=== PATIENT | male | born 1970 | race Caucasian/White ===

== ENCOUNTER 2021-11-14 15:10 | Emergency (ER) | payer MEDICAID ==
[~2021-11-14] VITALS: Ht 172.7 cm; Wt 63.5 kg
[2021-11-14 15:13] VITALS: BP 105/68
--- NOTE | 2021-11-14 15:22 | NUR ---
51 y/o male ambulated to 3, pt states "my heart has not beat for 10 years and it barely started beating now". states "something is wrong upstairs, they said i have a navel". pt is c/o swelling in the face started yesterday, pt has reddened and blisters around eyes. pmh: denies nka med: denies
[2021-11-14 16:16] LABS: BASOPHILS % (AUTO) 0.3 % (0.0-2.0); EOSINOPHILS # (AUTO) 1.9 K/uL (0-0.4); EOSINOPHILS % (AUTO) 23.5 % (0.0-4.0); HEMATOCRIT 29.4 % (36-52); HEMOGLOBIN 10.2 g/dL (12.0-18.0); LYMPHOCYTES # (AUTO) 0.9 K/uL (2.0-11.5); LYMPHOCYTES % (AUTO) 11.8 % (20.5-51.1); MEAN CORPUSCULAR HEMOGLOBIN 36 pg (27-31); MEAN CORPUSCULAR HGB CONC 35 g/dL (33-37); MEAN CORPUSCULAR VOLUME 103.7 fL (80-94); MONOCYTES # (AUTO) 0.6 K/uL (0.8-1.0); MONOCYTES % (AUTO) 7.2 % (1.7-9.3); NEUTROPHILS # (AUTO) 4.5 K/uL (1.8-7.7); NEUTROPHILS % (AUTO) 57.2 % (42.2-75.2); PLATELET COUNT (AUTO) 355 K/uL (140-450); RED BLOOD CELL COUNT(AUTO) 2.83 MIL/uL (4.20-6.10); RED CELL DISTRIBUTION WIDTH 13.9 % (11.6-13.7); WHITE BLOOD COUNT (AUTO) 7.9 K/uL (4.8-10.8)
[2021-11-14 16:18] LABS: BARBITURATE, URINE NEGATIVE ng/ml (NEG <=200); BENZODIAZEPINE, URINE NEGATIVE ng/mL (NEG <=200); CANNABINOID, URINE NEGATIVE ng/mL (NEG <=50); COCAINE, URINE NEGATIVE ng/mL (NEG <=300); OPIATE, URINE NEGATIVE ng/mL (NEG <=2000); PHENCYCLIDINE SCREEN,URINE NEGATIVE ng/mL (NEG <=25)
[2021-11-14 16:19] LABS: ACETAMINOPHEN < 0.5 ug/ml (10-30); ALBUMIN 3.2 g/dL (3.4-5.0); ANION GAP 13.7 (8-16); ASPARTATE AMINOTRANSFERASE 17 U/L (15-37); CARBON DIOXIDE 23.6 mmol/L (21-32); CHLORIDE 103 mmol/L (98-107); CREATININE 1.5 mg/dL (0.6-1.3); GFR ARICAN-AMERICAN 63 mL/min (>90); GLUCOSE 95 mg/dL (74-106); POTASSIUM 4.3 mmol/L (3.5-5.1); SALICYLATE 5.9 mg/dL (2.8-20.0); SODIUM SERUM 136 mmol/L (136-145); TOTAL BILIRUBIN 0.2 mg/dL (0.0-1.0); UREA NITROGEN, BLOOD 15 mg/dL (7-18)
[2021-11-14 16:22] LABS: APPEARANCE,URINE HAZY (CLEAR); BILIRUBIN,URINE 2+ (NEGATIVE); BLOOD, URINE TRACE-I (NEGATIVE); COLOR,URINE YELLOW (YELLOW); LEUKOCYTE ESTERASE ,URINE 3+ (NEGATIVE); NITRITE, URINE POSITIVE (NEGATIVE); UGLUCOSE NEGATIVE (NEGATIVE)
--- NOTE | 2021-11-14 16:30 | NUR ---
dinner tray provided to pt
[2021-11-14 16:43] LABS: OTHER CASTS, URINE None Seen /LPF (None Seen); RBC,URINE 0-5 /HPF (0-5); WBC,URINE 16-25 (MOD) /HPF (0-5)
--- NOTE | 2021-11-14 16:56 | NUR ---
PT FINISHED 80% OF DINNER TRAY, PATIENT POSITIONED FOR COMFORT; HOB ELEVATED; BEDRAILS UP X1; BED DOWN.
--- NOTE | 2021-11-14 19:24 | NUR ---
Pt report given to HEBER SWANSON. Transfer of care at this time.
[2021-11-14] MEDS ORDERED: cefTRIAXone 1,000 MG VIAL ONE (19:32)
--- NOTE | 2021-11-14 22:09 | NUR ---
Patient spoke with TELE Psychiatrist. recommended to place patient on .
--- NOTE | 2021-11-14 22:51 | NUR ---
Called Gavin DOMINGUEZ and request hold .
--- NOTE | 2021-11-14 23:23 | NUR ---
Gavin DOMINGUEZ at bedside to speak with patient.
--- NOTE | 2021-11-14 23:42 | NUR ---
Spoke with Yancy, Director of [facility], reported, patient had been taking care by facility , patient did not need to be transfer to another facility. She wants to take him back to his facility , if patient will be release to from hospital.
--- NOTE | 2021-11-15 01:08 | NUR ---
Spoke with Yancy (in person) and explained situation , she understood and will call tomorrow and update patient status.
--- NOTE | 2021-11-15 01:21 | NUR ---
Patient is sleeping, vss.
--- NOTE | 2021-11-15 02:33 | NUR ---
Provided Sanwiches, [place] Juice and Blankets as request
--- NOTE | 2021-11-15 04:18 | NUR ---
Provided Water as request.
--- NOTE | 2021-11-15 06:10 | NUR ---
Patient appears to be resting comfortably in bed. Vital Signs within normal limits. Respirations even and unlabored.
--- NOTE | 2021-11-15 07:13 | NUR ---
Report given to HEBER Quijano and endorse care of patient.
--- NOTE | 2021-11-15 07:19 | NUR ---
RECEIEVED REPORT FROM [facility], RN FOR TRANSFER OF CARE
--- NOTE | 2021-11-15 08:42 | NUR ---
SPOKE WITH HILARIO FROM [facility] AND REQUESTED PATIENT MED LIST. HILARIO STATED SHE WILL FAX OVER MED REC
--- NOTE | 2021-11-15 09:34 | NUR ---
PT PROVIDED WITH BREAKFAST AT BEDSIDE
--- NOTE | 2021-11-15 09:43 | NUR ---
SPOKE WITH PSYCH MD DR. Solorio AND PROVIDED WITH PATIENT MEDICATIONS. PER DR. Solorio SHE IS GOING TO BREAK THE PATIENT 5150 HOLD TODAY AND PATIENT CAN BE D/C BACK TO [facility]
[2021-11-15] MEDS ORDERED: CEPH-588 PO (10:44)
[2021-11-15] MEDS ORDERED: ELIMC TP (10:47)
--- NOTE | 2021-11-15 11:15 | NUR ---
Patient appears to be resting comfortably in bed. Respirations even and unlabored. NAD NOTED
--- NOTE | 2021-11-15 12:02 | NUR ---
PT PROVIDED WITH LUNCH TRAY BEDISDE
--- NOTE | 2021-11-15 12:41 | NUR ---
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
[2021-11-15 13:08] VITALS: BP 122/70
--- NOTE | 2021-11-15 13:09 | NUR ---
Patient discharged with v/s stable. Written and verbal after care instructions given and explained. Patient verbalized understanding. Ambulatory with steady gait. All questions addressed prior to discharge. Advised to follow up with PMD.
[2021-11-15] MEDS ORDERED: HALOPERIDOL 5 MG TAB PO SCH (21:00)
== END 2021-11-15 13:09 | disposition home or self-care (01) ==
LOC: MED 15:10
DX: F23 Brief psychotic disorder (principal); N39.0 Urinary tract infection, site not specified
CPT/HCPCS: 36415; 71045; 80053; 80305; 81001; 82550; 84484; 85025; 87086; 93005; 96365; 99285; G0480; G0482; J0696; Q0092